=== PATIENT | female | born 1935 | race Caucasian/White ===

== ENCOUNTER → 2016-04-22 | Outpatient (CLI) | payer MEDICARE, BC ==
[~2016-04-22] MED LIST: ACTOPLUS MET 501 TAB PO; ACTOPLUS MET 851 TAB PO; AMBIEN 10MG10 MG PO; AMBIEN 5MG TABLE5 MG PO; CALAN SR180 MG PO; CALAN80 MG PO; COUMADIN 2MG2 MG/TAB PO; COUMADIN1 MG PO; COUMADIN2.5 MG PO; COUMADIN5 MG PO; ENALAPRIL10 MG PO; FENOGLIDE40 MG PO; GABAPENTIN300 MG PO; GLUCOPHAGE850 MG PO; HCTZ 25MG25 MG PO; I-CAPS WITH LU1 EACH PO; ICAPS AREDS1 TAB PO; LANOXIN 0.25M0.25 MG PO; LORTAB 7.5/3251 TAB PO; MASON NATURAL L20 MG PO; MULTIPLE VITAMI1 CAP PO; NIACINAMIDE500 MG PO; NORCO 325 MG-51 TA1 PO; SIMVASTATIN10 MG PO; TRICOR160 MG PO; ULTRAM50 MG PO; [UNRECOGNIZED DRUG - OTHER] PO; [UNRECOGNIZED DRUG - OTHER] PO; [UNRECOGNIZED DRUG - OTHER] PO
== END ==
LOC: LAB 10:00
DX: I48.0 Paroxysmal atrial fibrillation (principal); Z51.81 Encounter for therapeutic drug level monitoring; Z79.01 Long term (current) use of anticoagulants

== ENCOUNTER → 2016-05-06 | Outpatient (CLI) | payer MEDICARE, BC | LOC: LAB 10:37 | DX: I48.91 Unspecified atrial fibrillation (principal) ==

== ENCOUNTER → 2016-05-23 | Outpatient (CLI) | payer MEDICARE, BC | LOC: LAB 09:08 | DX: E11.9 Type 2 diabetes mellitus without complications (principal); I48.91 Unspecified atrial fibrillation; N18.3 Chronic kidney disease, stage 3 (moderate); Z51.81 Encounter for therapeutic drug level monitoring; Z79.01 Long term (current) use of anticoagulants ==

== ENCOUNTER → 2016-06-06 | Outpatient (CLI) | payer MEDICARE, BC | LOC: LAB 08:49 | DX: Z51.81 Encounter for therapeutic drug level monitoring (principal); Z79.01 Long term (current) use of anticoagulants; I48.91 Unspecified atrial fibrillation ==

== ENCOUNTER → 2016-06-28 | Outpatient (CLI) | payer MEDICARE, BC | LOC: LAB 15:55 | DX: Z51.81 Encounter for therapeutic drug level monitoring (principal); Z79.01 Long term (current) use of anticoagulants; I48.91 Unspecified atrial fibrillation ==

== ENCOUNTER → 2016-07-26 | Outpatient (CLI) | payer MEDICARE, BC ==
[2015-09-26 09:26] VITALS: BP 164/66
== END ==
LOC: LAB 09:44
DX: Z51.81 Encounter for therapeutic drug level monitoring (principal); Z79.01 Long term (current) use of anticoagulants; I48.91 Unspecified atrial fibrillation

== ENCOUNTER → 2016-08-21 | Outpatient (CLI) | payer MEDICARE, BC ==
[2015-09-26 09:26] VITALS: BP 164/66
== END ==
LOC: LAB 11:40
DX: Z51.81 Encounter for therapeutic drug level monitoring (principal); Z79.01 Long term (current) use of anticoagulants; I48.91 Unspecified atrial fibrillation

== ENCOUNTER → 2016-09-25 | Outpatient (CLI) | payer MEDICARE, BC ==
[2015-09-26 09:26] VITALS: BP 164/66
== END ==
LOC: LAB 15:47
DX: Z51.81 Encounter for therapeutic drug level monitoring (principal); Z79.01 Long term (current) use of anticoagulants; I48.91 Unspecified atrial fibrillation

== ENCOUNTER → 2016-10-29 | Outpatient (CLI) | payer MEDICARE, BC ==
[2015-09-26 09:26] VITALS: BP 164/66
== END ==
LOC: LAB 16:10
DX: Z51.81 Encounter for therapeutic drug level monitoring (principal); Z79.01 Long term (current) use of anticoagulants; I48.91 Unspecified atrial fibrillation

== ENCOUNTER → 2016-12-06 | Outpatient (CLI) | payer MEDICARE, BC ==
[2015-09-26 09:26] VITALS: BP 164/66
== END ==
LOC: LAB 15:51
DX: I48.91 Unspecified atrial fibrillation (principal)

== ENCOUNTER → 2016-12-09 | Outpatient (CLI) | payer MEDICARE, BC ==
[2015-09-26 09:26] VITALS: BP 164/66
== END ==
LOC: LAB 09:24
DX: I48.91 Unspecified atrial fibrillation (principal)

== ENCOUNTER → 2016-12-17 | Outpatient (CLI) | payer MEDICARE, BC ==
[2015-09-26 09:26] VITALS: BP 164/66
== END ==
LOC: LAB 11:28
DX: I48.91 Unspecified atrial fibrillation (principal)

== ENCOUNTER → 2016-12-20 | Outpatient (CLI) | payer MEDICARE, BC ==
[2015-09-26 09:26] VITALS: BP 164/66
== END ==
LOC: LAB 14:08
DX: I48.91 Unspecified atrial fibrillation (principal)

== ENCOUNTER → 2017-01-03 | Outpatient (CLI) | payer MEDICARE, BC ==
[2015-09-26 09:26] VITALS: BP 164/66
== END ==
LOC: LAB 14:05 → EDSTATUS 14:07
DX: I48.91 Unspecified atrial fibrillation (principal)

== ENCOUNTER → 2017-01-21 | Outpatient (CLI) | payer MEDICARE, BC ==
[2015-09-26 09:26] VITALS: BP 164/66
[2017-01-21 14:27] LABS: PROTHROMBIN TIME 25.7 SECONDS (9.0-12.0)
== END ==
LOC: LAB 13:43
PROVIDERS: Internal Medicine
DX: I48.91 Unspecified atrial fibrillation (principal)

== ENCOUNTER → 2017-02-25 | Outpatient (CLI) | payer MEDICARE, BC ==
[2015-09-26 09:26] VITALS: BP 164/66
[2017-02-25 16:00] LABS: EOS # 0.1 (0.04-0.40); EOS % 1.2 % (1.0-5.0); HEMATOCRIT 32.4 % (37.0-47.0); HEMOGLOBIN 9.9 g/dL (12.5-16.0); LYMPH# 1.5 (1.50-4.00); MEAN CELL VOLUME 95 fl (78-100); MEAN CORPUSCULAR HEMOGLOBIN 29 pg (27-31); MEAN CORPUSCULAR HGB CONC 31 g/dL (33-37); MEAN PLATELET VOLUME 11.7 fl (7.4-10.4); MONO # 0.6 (0.20-0.80); NEU # 3.5 (1.40-6.50); PLATELET COUNT 242 K/mm3 (130-400); RED CELL DISTRIBUTION WIDTH 16.4 % (11.5-14.5); WHITE BLOOD COUNT 5.6 K/mm3 (4.8-10.8)
[2017-02-25 16:06] LABS: ALBUMIN 3.7 g/dL (3.5-5.0); BUN/CREATININE RATIO 25.5 (6.0-26.0); CALCIUM 9.8 mg/dL (8.4-10.2); POTASSIUM 4.8 mmol/L (3.6-5.0); TOTAL BILIRUBIN 0.6 mg/dL (0.2-1.3); TOTAL PROTEIN 6.2 g/dL (6.3-8.2)
[2017-02-25 16:46] LABS: PROTHROMBIN TIME 32.1 SECONDS (9.0-12.0)
== END ==
LOC: LAB 15:05
PROVIDERS: Internal Medicine
DX: E11.9 Type 2 diabetes mellitus without complications (principal); I48.0 Paroxysmal atrial fibrillation; K90.89 Other intestinal malabsorption

== ENCOUNTER → 2017-03-04 | Outpatient (CLI) | payer MEDICARE, BC ==
[2015-09-26 09:26] VITALS: BP 164/66
[2017-03-04 16:46] LABS: PROTHROMBIN TIME 17.9 SECONDS (9.0-12.0)
== END ==
LOC: LAB 16:12
PROVIDERS: Internal Medicine
DX: I48.91 Unspecified atrial fibrillation (principal); Z88.5 Allergy status to narcotic agent

== ENCOUNTER → 2017-03-12 | Outpatient (CLI) | payer MEDICARE, BC ==
[2015-09-26 09:26] VITALS: BP 164/66
[2017-03-12 13:20] LABS: PROTHROMBIN TIME 19.2 SECONDS (9.0-12.0)
== END ==
LOC: LAB 12:27
PROVIDERS: Internal Medicine
DX: I48.91 Unspecified atrial fibrillation (principal)

== ENCOUNTER → 2017-03-17 | Outpatient (CLI) | payer MEDICARE, BC ==
[2015-09-26 09:26] VITALS: BP 164/66
== END ==
LOC: RAD 15:18
DX: I50.21 Acute systolic (congestive) heart failure (principal)

== ENCOUNTER → 2017-03-20 | Outpatient (CLI) | payer MEDICARE, BC ==
[2015-09-26 09:26] VITALS: BP 164/66
[2017-03-20 14:55] LABS: BUN/CREATININE RATIO 21.5 (6.0-26.0); CALCIUM 10.2 mg/dL (8.4-10.2); POTASSIUM 4.2 mmol/L (3.6-5.0)
== END ==
LOC: LAB 13:10
PROVIDERS: Internal Medicine
DX: I48.0 Paroxysmal atrial fibrillation (principal); E11.9 Type 2 diabetes mellitus without complications; I10 Essential (primary) hypertension; K90.89 Other intestinal malabsorption

== ENCOUNTER → 2017-03-25 | Outpatient (CLI) | payer MEDICARE, BC ==
[2015-09-26 09:26] VITALS: BP 164/66
== END ==
LOC: LAB 10:42
PROVIDERS: Internal Medicine
DX: I48.91 Unspecified atrial fibrillation (principal)